=== PATIENT | male | born 1930 | race Caucasian/White ===

== ENCOUNTER 2018-06-24 10:17 | Outpatient (CLI) | payer MEDICARE ==
--- NOTE | 2018-06-24 13:37 | CT ---
CT OF THE CHEST, ABDOMEN, ND PELVIS WITH IV CONTRAST: INDICATION: Osseous metastatic disease of unknown malignancy. FINDINGS: There is a large right infrahilar mass measuring 5.9 cm on image 35 of series 2. There is a small ri ght pleural effusion. There is a small pericardial effusion. There is extensive right hilar lymphadenopathy. The largest is measuring 1.8 cm on image 30 of serie s 2. There is extensive mediastinal lymphadenopathy, the largest seen within the subcarinal region m easuring 1.9 cm. There are numerous scattered pulmonary nodules throughout both lungs suspicious for metastatic diseas e. The largest nodule within the left lung is partially cavitated in the left lower lobe on image 34 of series 3 measuring 1.7 cm. There are hypodensities within the liver, some of which may reflect cyst; however, there is a lesion within segment 8 of the right hepatic lobe measuring 2.2 cm, suspicious for a metastatic lesion. There are bilateral adrenal lesions. The largest within the right adrenal gland measures 2.9 cm and are suspicious for metastatic disease. The spleen and pancreas appear within normal limits. The kidneys are normal-appearing. No free fluid is evident. The bladder, rectum, and perirectal soft tissues are unremarkable. The pr ostate is mildly enlarged. There are numerous scattered lytic lesions involving the bony skeleton. One is seen within the right acetabular pubic root on image 104 of series 2 measuring 4 cm. There is a mildly sclerotic lesion i nvolving the proximal sternal body. No definite pathologic fracture is evident. Scattered degenerat darrian and osteoarthritic change. IMPRESSION: 1. There is a large right infrahilar mass suspicious for the patient's primary malignancy. This iris sures up to 5.9 cm in size. There are bilateral pulmonary metastatic lesions. There metastatic lymp hadenopathy of the mediastinum and right hilar region. There are metastatic lesions within the adren al glands. There are metastatic lesions within the liver with metastatic lesions seen diffusely thro ughout the visualized osseous structure. One of the largest bone lesions is seen within the right ac etabulum measuring 4.2 cm. 2. Small right pleural effusion. 3. Small pericardial effusion. POS: [facility]
--- NOTE | 2018-06-24 15:40 | NM ---
WHOLE BODY BONE SCAN: INDICATION: Secondary malignant neoplasm of bone. RADIOPHARMACEUTICAL: 31.2 mCi Technetium 99m MDP IVO. FINDINGS: Diffuse abnormal radiotracer activity is seen within the axial and appendicular skeleton including th e calvarium, the right shoulder girdle, bilateral ribs at multiple levels, diffusely throughout the s pine, within the bilateral upper and lower extremities and involving the pelvis. There is scattered degenerative activity, as well. 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 POS: [facility]
[2018-06-24] MEDS ORDERED: Iopamidol 370 76% 100 ML VIAL ONE (16:40)
== END 2018-06-24 10:18 | disposition home or self-care (01) ==
LOC: NM 10:17
PROVIDERS: ATTEND Internal Medicine Hematology & Oncology
DX: C79.51 Secondary malignant neoplasm of bone (principal); C80.1 Malignant (primary) neoplasm, unspecified; E83.52 Hypercalcemia; J90 Pleural effusion, not elsewhere classified; I31.3 Pericardial effusion (noninflammatory)
CPT/HCPCS: 71260; 74177; 78306